=== PATIENT | male | born 1965 | race Caucasian/White ===

== ENCOUNTER 2018-02-01 17:12 | Outpatient (CLI) | payer OTHER | END 2018-02-01 17:13 | disposition home or self-care (01) | LOC: RHC-LAB 17:12 | PROVIDERS: ATTEND Emergency Medicine | DX: E11.9 Type 2 diabetes mellitus without complications (principal); I10 Essential (primary) hypertension; E66.9 Obesity, unspecified; Z12.5 Encounter for screening for malignant neoplasm of prostate | CPT/HCPCS: 36415; 80053; 80061; 83036; 84443; 85025 ==

== ENCOUNTER 2018-02-10 17:57 | Emergency (ER) ==
[2018-02-10 18:13] VITALS: BP 122/79; TEMP 98.8; BMI 44.9
[2018-02-10] MEDS ORDERED: SODIUM CHLORIDE 1,000 ML IV STA (18:36)
--- NOTE | 2018-02-10 19:55 | CT ---
EXAM: Noncontrast CT of the abdomen and pelvis HISTORY: Vomiting COMPARISON: None available. TECHNIQUE: Axial noncontrast CT of the abdomen pelvis with sagittal and coronal reformats. FINDINGS: Noncontrast technique limits evaluation of abdominal viscera. The unenhanced liver appears unremarkab le. The gallbladder has been removed. Splenic calcified granulomas are noted. The unenhanced adren als appear unremarkable. There is mild bilateral perinephric fat stranding. A right renal interpola r exophytic lesion is seen measuring 9 mm and 40 HU. There is a right renal inferior pole exophytic lesion measuring 11 mm and 27 HU. The pancreas appears unremarkable. There is no evidence of urolithi asis. The stomach is mild distended with ingested material. No abnormal small bowel dilation is seen. Multi ple right hemiabdomen surgical clips are seen, in close proximity to the colon. More central abdomina l surgical clips are also seen. No abnormal colonic dilation is seen. The appendix is not identifie d. No pericecal inflammatory changes seen. No free air or free fluid is seen. The bladder is moderately distended. Degenerative changes of the h ips and spine are seen. IMPRESSION: Mild bilateral perinephric fat stranding which could be chronic or indicative of inflammation. Two right renal lesions with the largest measuring 1.1 cm. These measure greater than simple cystic density. Follow-up ultrasound is recommended. Moderate bladder distension. Operative change of the abdomen. Noncontrast exam.
--- NOTE | 2018-02-10 20:04 | ED.PDOC ---
General ED Provider: Dr. TAMEKA CARBAJAL-ER Chief Complaint: Abnormal Labs Stated Complaint: was sent from the clinic with high potassium Time Seen by Physician: 18:00 Mode of Arrival: Wheelchair Information Source: Patient Exam Limitations: No limitations Primary [facility] Nursing and Triage Documentation Reviewed and Agree: Yes Does patient meet sepsis criteria?: No System Inflammatory Response Syndrome: Not Applicable Sepsis Protocol: For patient's 13 years and over: Temp is 96.8 and below OR 101 and greater Pulse >90 BPM Resp >20/minute Acutely Altered Mental Status Are patient's symptoms suggestive of a new infection, such as: -Pneumonia -Skin, Soft Tissue -Endocarditis -UTI -Bone, Joint Infection -Implantable Device -Acute Abdominal Infection -Wound Infection -Meningitis -Blood Stream Catheter Infection -Unknown Miscellaneous Complaint Exam - Complex/Multi-System Complaint/Exam Onset/Duration: unknown Initial Severity: Mild Current Severity: Mild Location of Pain: no pain Associated Signs and Symptoms: Denies: Decreased responsiveness, Confusion, Agitation, Dizziness, Weakness, Syncope, Headache, Short of air, Cough, Wheezing , Hemoptysis, Chest pain, Palpitations, Edema, Nausea, Vomiting, Diarrhea, Abdominal pain, Back pain, Dysuria, Hematemesis, Melena, Decreased oral intake, Fever, Diaphoresis, Immunocompromised, Anticoagulation Therapy, Recent medication changes, Indwelling medical and scientific illustrator, Prior MRSA, Prior VRE, Recent trauma, Remote trauma Recent Echo/LV Function: No Respiratory Distress: None JVD Present: No Tachypnea Present: No Stridor Present: No Abdominal Findings: Present: Normal findings Meningeal Signs Positive: No Focal Weakness: Present: None Focal Sensory Loss: Present: None Gait: Normal Gag Reflex Present: Yes Babinski Sign: Negative Right, Negative Left Skin Findings: Present: Normal findings Joint Swelling Present: No In-Dwelling Device Present: No Quality Indicator For Non-Traumatic Chest Pain/Syncope: EKG Performed Review of Systems - Review Of Systems Constitutional: Reports: No symptoms Eyes: Reports: No symptoms Ears, Nose, Mouth, Throat: Reports: No symptoms Respiratory: Reports: No symptoms Cardiac: Reports: No symptoms GI: Reports: No symptoms : Reports: No symptoms Musculoskeletal: Reports: No symptoms Skin: Reports: No symptoms Neurological: Reports: No symptoms Endocrine: Reports: No symptoms Hematologic/Lymphatic: Reports: No symptoms All Other Systems: Reviewed and Negative Past Medical History - Past Medical History Previously Healthy: No Endocrine: Reports: Unknown Cardiovascular: Reports: Unknown Respiratory: Reports: Unknown Hematological: Reports: Unknown Gastrointestinal: Reports: Unknown Genitourinary: Reports: Unknown Neuro/Psych: Reports: Unknown Musculoskeletal: Reports: Unknown Cancer: Reports: Unknown - Surgical History General Surgical History: Reports: Unknown - Family History Family History: Reports: Unknown - Social History Smoking Status: Current every day smoker Hx Substance Use: No Alcohol Screening: None Physical Exam - Physical Exam Appearance: Well-appearing, No pain distress, Well-nourished Eyes: BECKY, EOMI, Conjunctiva clear ENT: Ears normal, Nose normal, Oropharynx normal Neck: Supple Respiratory: Airway patent Cardiovascular: RRR, Pulses normal, No rub, No murmur GI/: Soft Musculoskeletal: Normal strength, ROM intact, No edema, No calf tenderness Skin: Warm, Dry, Normal color Neurological: Sensation intact, Motor intact, Reflexes intact, Cranial nerves intact, Alert, Oriented Psychiatric: Affect appropriate, Mood appropriate Interpretation - Radiology Interpretation Radiology Interpretation By: Radiologist Radiology Results: Positive Exam Interpreted: CT Scan - EKG Interpretation Time of EKG #1: 20:04 Rate: Normal Ectopy: None Davilla: NL ST Segment: Normal Interpretation: R bbb Critical Care Note - Critical Care Note Total Time (mins): 0 Course - Course Hematology/Chemistry: 02/10/18 19:10 02/10/18 19:10 Orders, Labs, Meds: Lab Review 02/10/18 02/10/18 02/10/18 18:35 19:10 19:10 WBC 11.10 H RBC 3.63 L Hgb 10.6 L Hct 33.6 L MCV 92.6 MCH 29.2 MCHC 31.5 L RDW Coeff of [place] 14.1 Plt Count 176 Immature Gran % (Auto) 1.2 Neut % (Auto) 61.7 Lymph % (Auto) 27.7 [place] % (Auto) 7.6 Eos % (Auto) 1.3 Baso % (Auto) 0.5 Immature Gran # (Auto) 0.1 Neut # (Auto) 6.9 Lymph # (Auto) 3.1 [place] # (Auto) 0.8 Eos # (Auto) 0.1 Baso # (Auto) 0.1 Puncture Site Lbrach O2 Saturation 95.0 ABG pH 7.362 ABG pCO2 40.9 ABG pO2 77.0 L ABG HCO3 23.2 ABG Total CO2 24 ABG Base Excess -2 Russell Test + FiO2 % 21.0 Sodium 140 Potassium 5.5 H Chloride 106 Carbon Dioxide 24 Anion Gap 15.5 BUN 55 H Creatinine 1.26 H Estimated GFR (MDRD) 60.00 BUN/Creatinine Ratio 43.65 Glucose 92 Calcium 9.2 Total Bilirubin 0.2 AST 29 ALT 21 Alkaline Phosphatase 56 Total Creatine Kinase CK-MB (CK-2) CK-MB (CK-2) % Troponin I Total Protein 7.8 Albumin 4.1 Globulin 3.7 Albumin/Globulin Ratio 1.11 Amylase 102 Lipase 198 Urine Color Urine Clarity Urine pH Ur Specific [place] Urine Protein Urine Glucose (UA) Urine Ketones Urine Blood Urine Nitrite Urine Bilirubin Urine Urobilinogen Ur Leukocyte Esterase 02/10/18 02/10/18 19:10 20:03 WBC RBC Hgb Hct MCV MCH MCHC RDW Coeff of [place] Plt Count Immature Gran % (Auto) Neut % (Auto) Lymph % (Auto) [place] % (Auto) Eos % (Auto) Baso % (Auto) Immature Gran # (Auto) Neut # (Auto) Lymph # (Auto) [place] # (Auto) Eos # (Auto) Baso # (Auto) Puncture Site O2 Saturation ABG pH ABG pCO2 ABG pO2 ABG HCO3 ABG Total CO2 ABG Base Excess Russell Test FiO2 % Sodium Potassium Chloride Carbon Dioxide Anion Gap BUN Creatinine Estimated GFR (MDRD) BUN/Creatinine Ratio Glucose Calcium Total Bilirubin AST ALT Alkaline Phosphatase Total Creatine Kinase 233 H CK-MB (CK-2) 4.4 H CK-MB (CK-2) % 1.39062 Troponin I < 0.012 Total Protein Albumin Globulin Albumin/Globulin Ratio Amylase Lipase Urine Color Yellow Urine Clarity Clear Urine pH 5.5 Ur Specific [place] 1.015 Urine Protein Negative Urine Glucose (UA) Negative Urine Ketones Negative Urine Blood Negative Urine Nitrite Negative Urine Bilirubin Negative Urine Urobilinogen 0.2 Ur Leukocyte Esterase Negative Orders Category Date Time Status ABG DRAW REQUEST Stat CARDIO 02/10/18 18:36 Completed EKG-(ED ONLY) Stat CARDIO 02/10/18 18:36 Completed ED IV/MEDIPORT/POWERPORT .ONCE EMERGENCY 02/10/18 18:36 Active ABG Stat LAB 02/10/18 18:35 Completed AMYLASE Stat LAB 02/10/18 19:10 Completed CBC W/ AUTO DIFF Stat LAB 02/10/18 19:10 Completed COMPREHENSIVE METABOLIC PANEL Stat LAB 02/10/18 19:10 Completed CREATINE KINASE Stat LAB 02/10/18 19:10 Completed LIPASE Stat LAB 02/10/18 19:10 Completed TROPONIN I Stat LAB 02/10/18 19:10 Completed UA [URINALYSIS C & S IF INDICATED] Stat LAB 02/10/18 20:03 Completed 0.9 % Sodium Chloride [Saline Flush] MEDS 02/10/18 18:36 Ordered 1 syr IVF PRN PRN Sodium Chloride 0.9% [Sodium Chloride] 1,000 ml MEDS 02/10/18 18:[address] ABDOMEN/PELVIS WO CONTRAST Stat RADS 02/10/18 18:37 Completed Medications Generic Name Dose Route Start Last Admin Trade Name Freq PRN Reason Stop Dose Admin Sodium Chloride 1 syr 02/10/18 18:36 Saline Flush IVF PRN PRN To flush IV Discontinued Medications Generic Name Dose Route Start Last Admin Trade Name Freq PRN Reason Stop Dose Admin Sodium Chloride 1,000 mls @ 1,000 mls/hr 02/10/18 18:36 02/10/18 19:16 Sodium Chloride IV 02/10/18 19:35 1,000 mls/hr BOLUS STA Administration Vital Signs: Temp Pulse Resp BP Pulse Ox 02/10/18 17:58 98.8 F 96 H 20 122/79 94 L Departure - Departure Time of Disposition: 20:20 Disposition: HOME SELF-CARE Discharge Problem: Hyperkalemia, Abnormal CT scan, kidney Anemia Qualifiers: Anemia type: unspecified type Qualified Code(s): D64.9 - Anemia, unspecified Instructions: Hyperkalemia (ED) Condition: Good Pt referred to PMD for follow-up: Yes IPMP verified?: No Additional Instructions: stop the aldactone---keep f/u with spenser next week--talk to spenser about rechecking the potassium, evaluation of your anemia and also ordering u/s of the kidneys to f/u on the masses on the right kidney Allergies/Adverse Reactions: Allergies meperidine HCl [From Demerol] Allergy (Unverified 02/01/18 14:47) Internal Rash Home Medications: Ambulatory Orders Allopurinol 100 mg PO DAILY 02/02/18 Atorvastatin Calcium [Lipitor] 20 mg PO DAILY 02/02/18 Divalproex Sodium [Depakote Er] 500 mg PO BID 02/02/18 Enalapril Maleate [Vasotec] 20 mg PO BID 02/02/18 Furosemide 40 mg PO BID 02/02/18 Gabapentin 300 mg PO TID 02/02/18 Glipizide [Glucotrol] 10 mg PO DAILY 02/02/18 Hydrocodone/Acetaminophen [[place] 10-325 Tablet] 1 each PO TID 02/02/18 Insulin Glargine,Hum.rec.anlog [Lantus] 25 SQ vial 02/02/18 Liraglutide [Victoza 2-Prasanna] 0.6 mg SQ DAILY 02/02/18 Metformin HCl 1,000 mg PO BID 02/02/18 Metoprolol Tartrate [Lopressor] 100 mg PO BID 02/02/18 Pantoprazole Sodium [Protonix] 40 mg PO DAILY 02/02/18 Pen Needle, Diabetic [Trueplus Pen Needle] 1 each MC 02/02/18 Spironolact/Hydrochlorothiazid [Aldactazide 25-25 Tablet] 1 each PO DAILY Syrge-Ndl,Ins 0.3 ml Half [place] [Ulticare Insulin Syringe] 1 each MC DIRECTED 02/02/18 Tamsulosin HCl [Flomax] 0.4 mg PO DAILY 02/02/18 Tizanidine HCl 4 mg PO TID 02/02/18 Disposition Discussed With: Patient
== END 2018-02-10 20:28 | disposition home or self-care (01) ==
LOC: ED 17:57
DX: E87.5 Hyperkalemia (principal); D64.9 Anemia, unspecified; R93.429 Abnormal radiologic findings on diagnostic imaging of unspecified kidney; Z79.899 Other long term (current) drug therapy; F17.210 Nicotine dependence, cigarettes, uncomplicated
CPT/HCPCS: 36415; 80053; 81001; 82150; 82550; 82553; 82803; 83690; 84484; 85025; 93005; 93010; 96360; 96361; 99283

== ENCOUNTER 2018-02-21 09:43 | Outpatient (CLI) ==
--- NOTE | 2018-02-21 11:04 | US ---
EXAM: Renal ultrasound. History: Right renal masses, follow-up Comparison: CT abdomen pelvis 02/10/2018 Technique: Multiple sonographic images through the kidneys were obtained. Color duplex Doppler was used to interrogate vascular flow. Findings: The right kidney measures 13.2 cm in long length demonstrating normal cortical echogenicity without e vidence for hydronephrosis or shadowing calculus. 1.6 cm exophytic lesion of the right kidney within the midpole. The left kidney measures 11.4 cm in long length demonstrating normal cortical echogenicity without ev idence for hydronephrosis, mass or shadowing calculus. Bladder was not well distended. Impression: 1. Indeterminate 1.6 cm exophytic lesion of the right kidney. Recommend further evaluation with CT o r MRI renal mass protocol. 2. No hydronephrosis
== END 2018-02-21 09:44 | disposition home or self-care (01) ==
LOC: RAD 09:43
PROVIDERS: ATTEND Nurse Practitioner Family
DX: N28.89 Other specified disorders of kidney and ureter (principal)

== ENCOUNTER 2018-03-06 13:56 | Outpatient (CLI) | payer OTHER | END 2018-03-06 13:57 | disposition home or self-care (01) | LOC: CAR 13:56 | PROVIDERS: ATTEND Psychiatry & Neurology Sleep Medicine | DX: G47.33 Obstructive sleep apnea (adult) (pediatric) (principal); R06.81 Apnea, not elsewhere classified | CPT/HCPCS: 95810 ==

== ENCOUNTER 2018-04-18 14:03 | Outpatient (CLI) | payer OTHER | END 2018-04-18 14:04 | disposition home or self-care (01) | LOC: CAR 14:03 | PROVIDERS: ATTEND Psychiatry & Neurology Sleep Medicine | DX: G47.33 Obstructive sleep apnea (adult) (pediatric) (principal) | CPT/HCPCS: 95811 ==

== ENCOUNTER 2018-07-03 14:23 | Outpatient (CLI) ==
--- NOTE | 2018-07-03 15:10 | US ---
EXAM: Ultrasound venous Doppler right lower extermity HISTORY: Pain right leg COMPARISON: None TECHNIQUE: Venous duplex ultrasound of the right lower extremity was performed using color, dee-sca le, and Doppler flow imaging. FINDINGS: There is normal color flow and compression of the right common femoral, greater saphenous, profunda femoral, femoral, popliteal, peroneal, posterior tibial, and anterior tibial veins without evidence of intraluminal thrombus. IMPRESSION: No right lower extremity deep venous thrombosis.
--- NOTE | 2018-07-03 16:30 | DI ---
Exam: Two views of the right hip. Comparison: CT abdomen pelvis performed 02/10/2018. Reason for exam: Pain in right hip. FINDINGS: There is a minimally displaced fracture of the right femoral neck. The femoral head artic ulates with the acetabulum. The partially imaged inferior pubic ramus appears intact. Impression: A minimally displaced fracture of the right femoral neck. Orthopedic consultation is recommended. Report faxed at 1621 hours on 07/03/2018. Findings were discussed directly with the ordering care provider at 1626 hours on 07/03/2018
== END 2018-07-03 14:24 | disposition home or self-care (01) ==
LOC: RAD 14:23
PROVIDERS: ATTEND Nurse Practitioner Family
DX: M79.604 Pain in right leg (principal); M79.89 Other specified soft tissue disorders; M25.551 Pain in right hip; W19.XXXA Unspecified fall, initial encounter

== ENCOUNTER 2018-07-03 18:44 | Emergency (ER) | payer OTHER ==
[2018-07-03 18:45] VITALS: BMI 44.9
[2018-07-03 19:02] VITALS: BP 134/74; TEMP 99.2
--- NOTE | 2018-07-03 19:45 | ED.PDOC ---
General ED Provider: Dr. ASHELY LANE Chief Complaint: Hip Pain/Injury Stated Complaint: Patient is wheelchair bound due to failed right knee repalcement. 3 weeks ago he fell out of his wheelchair landing on his right hip. Since the has been having difficulty with tranfers. went to the clinic today and had an x ray that showed minimally displced right hip fracture. Pain is worse with tranfers better while laying down. Time Seen by Physician: 19:40 Mode of Arrival: Wheelchair Information Source: Patient Exam Limitations: No limitations Primary Care Provider: DIOGENES SENA Nursing and Triage Documentation Reviewed and Agree: Yes Does patient meet sepsis criteria?: No System Inflammatory Response Syndrome: Not Applicable Sepsis Protocol: For patient's 13 years and over: Temp is 96.8 and below OR 101 and greater Pulse >90 BPM Resp >20/minute Acutely Altered Mental Status Are patient's symptoms suggestive of a new infection, such as: -Pneumonia -Skin, Soft Tissue -Endocarditis -UTI -Bone, Joint Infection -Implantable Device -Acute Abdominal Infection -Wound Infection -Meningitis -Blood Stream Catheter Infection -Unknown Musculoskeletal Complaint Exam - Hip/Pelvis Complaint/Exam Location of Pain: Reports: Right Mechanism of Injury: Reports: Trauma (remotely ) Onset/Duration: 3 weeks ago Symptoms Are: Still present Initial Severity: Moderate Current Severity: Mild Location: Reports: Discrete (rigth hip ) Character: Reports: Aching, Throbbing Aggravating: Reports: Movement, Weight bearing (Transfers ) Alleviating: Reports: None Associated Signs and Symptoms: Reports: Knee pain (unstable right knee ). Denies: Swelling, Redness, Bruising, Fever, Weakness, Dizziness, Syncope, Abdominal pain Related History: Denies: Similar episode, Occupational injury Able to Bear Weight: Yes (but with pain ) Septic Arthritis Risk Factors: Reports: None Related Surgical History: Reports: Joint Replacement Tenderness: Present: Right NV Bundle Intact Distal to Injury: No Differential Diagnoses: Fracture, Sprain, Strain Review of Systems - Review Of Systems Constitutional: Reports: No symptoms Eyes: Reports: No symptoms Ears, Nose, Mouth, Throat: Reports: No symptoms Respiratory: Reports: No symptoms Cardiac: Reports: No symptoms GI: Reports: No symptoms : Reports: No symptoms Musculoskeletal: Reports: Joint pain Skin: Reports: No symptoms Neurological: Reports: No symptoms Endocrine: Reports: No symptoms Hematologic/Lymphatic: Reports: No symptoms All Other Systems: Reviewed and Negative Past Medical History - Past Medical History Previously Healthy: No Endocrine: Reports: DM 2, Dyslipidemia Cardiovascular: Reports: Hypertension Respiratory: Reports: None Hematological: Reports: None Gastrointestinal: Reports: GERD Genitourinary: Reports: None Neuro/Psych: Reports: None Musculoskeletal: Reports: Back Pain, Joint Pain (knee pain ), Gout Cancer: Reports: None Other Pertinent Past Medical History: Neuropathy, RLS, fluid retention. - Surgical History General Surgical History: Reports: Orthopedic (Bilateral knee surgery ), Other ( rt ankle surg, colon resection) - Family History Family History: Reports: Unknown - Social History Smoking Status: Former smoker Hx Substance Use: No Alcohol Screening: None Physical Exam - Physical Exam Appearance: Ill-appearing, Obese Pain Distress: Mild Neck: Supple Respiratory: Airway patent, Breath sounds clear, Breath sounds equal, Respirations nonlabored Cardiovascular: RRR, Pulses normal, No rub, No murmur GI/: Soft, Nontender, No masses, Bowel sounds normal, No Organomegaly Musculoskeletal: Limited ROM (Right hip joint) Skin: Warm, Dry Neurological: Alert, Oriented Psychiatric: Affect appropriate, Mood appropriate Interpretation - Radiology Interpretation Radiology Interpretation By: Radiologist Radiology Results: Positive Exam Interpreted: Other (Minimally Displaced fracture of the right femoral neck. ) Physician Notification - Case Discussed Physician Notified: Dr Valentine Time of Notification: 20:08 Critical Care Note - Critical Care Note Total Time (mins): 0 Course - Course Hematology/Chemistry: 07/03/18 20:25 Orders, Labs, Meds: Lab Review 07/03/18 20:25 WBC 8.30 RBC 3.63 L Hgb 10.1 L Hct 33.1 L MCV 91.2 MCH 27.8 MCHC 30.5 L RDW Coeff of [place] 14.6 Plt Count 115 L Immature Gran % (Auto) 0.8 Neut % (Auto) 69.1 Lymph % (Auto) 22.9 [place] % (Auto) 5.9 Eos % (Auto) 1.1 Baso % (Auto) 0.2 Immature Gran # (Auto) 0.1 Neut # (Auto) 5.7 Lymph # (Auto) 1.9 [place] # (Auto) 0.5 Eos # (Auto) 0.1 Baso # (Auto) 0.0 Orders Category Date Time Status CBC W/ AUTO DIFF Stat LAB 07/03/18 20:25 Completed Vital Signs: Temp Pulse Resp BP Pulse Ox 07/03/18 18:45 99.2 F 97 H 20 134/74 92 L Departure - Departure Time of Disposition: 21:00 Disposition: TSF SHORT-TRM HOSP Discharge Problem: Hip fracture Qualifiers: Encounter type: initial encounter Fracture type: closed Laterality: right Qualified Code(s): S72.001A - Fracture of unspecified part of neck of right femur, initial encounter for closed fracture Condition: Stable Pt referred to PMD for follow-up: Yes IPMP verified?: No Allergies/Adverse Reactions: Allergies meperidine HCl [From Demerol] Allergy (Unverified 02/01/18 14:47) Internal Rash Home Medications: Ambulatory Orders Atorvastatin Calcium [Lipitor] 20 mg PO DAILY 02/02/18 Divalproex Sodium [Depakote Er] 500 mg PO BID 02/02/18 Enalapril Maleate [Vasotec] 20 mg PO BID 02/02/18 Glipizide [Glucotrol] 10 mg PO DAILY 02/02/18 Hydrocodone/Acetaminophen [[place] 10-325 Tablet] 1 each PO TID 02/02/18 Metoprolol Tartrate [Lopressor] 100 mg PO BID 02/02/18 Pantoprazole Sodium [Protonix] 40 mg PO DAILY 02/02/18 Pen Needle, Diabetic [Trueplus Pen Needle] 1 each MC 02/02/18 Syrge-Ndl,Ins 0.3 ml Half [place] [Ulticare Insulin Syringe] 1 each MC DIRECTED 02/02/18 Tamsulosin HCl [Flomax] 0.4 mg PO DAILY 02/02/18 Tizanidine HCl 4 mg PO TID 02/02/18
== END 2018-07-03 21:15 | disposition short-term general hospital (02) ==
LOC: ED 18:44
DX: S72.001A Fracture of unspecified part of neck of right femur, initial encounter for closed fracture (principal); W05.0XXA Fall from non-moving wheelchair, initial encounter; M25.561 Pain in right knee; E11.9 Type 2 diabetes mellitus without complications; I10 Essential (primary) hypertension; E78.5 Hyperlipidemia, unspecified; Z79.899 Other long term (current) drug therapy; M79.89 Other specified soft tissue disorders; M79.604 Pain in right leg; M25.551 Pain in right hip; W19.XXXA Unspecified fall, initial encounter
CPT/HCPCS: 36415; 85025; 99284

== ENCOUNTER 2018-08-31 10:00 | Outpatient (RCR) ==
--- NOTE | 2018-08-21 09:36 | RS.OPPTEV2 ---
Date of Note: 08/18/18 Visit #: 1 Number of visits approved by Insurance: NA Date of Evaluation: 08/18/18 Payer Source: MEDICARE Treatment Diagnosis: Right hip pain, declined mobility History of Condition/Mechanism of Injury:: Mr. Washburn reports right hip pain since he fell in mid June of this year. States he had no right hip pain before. He was initially told that he had a fracture of the right femoral neck , but when he was transferred to a [facility] and had further tests, he was told there was no fracture. 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 Level of Function: Mr. Washburn was performing transfers all transfers independently. Able to adjust his position in his WC and able to self propel with his feet. Functional Limitations: ADL's, Community Access/Integration (transfers) Current Subjective/complaints:: Mr. Washburn reports right hip pain and more difficulty with propelling wheelchair with feet and difficulty with transfers. States pain is directly over the right hip joint. Denies shooting pain into the right LE. Reports neuropathy in LE's. States he received a new wheelchair soon after his injury and this chair's seat is higher, which makes it more difficulty for him to use his feet to propel himself. He had a power chair years ago, but states he lives in a mobile home and it was difficult to maneuver. His is unable to help him, because she has bilateral LE amputations and uses a wheelchair for mobility. They both have hospital beds. Mr. Washburn states he sleeps on his right side. He does wake up at night sometimes due to right hip pain, and usually has pain when he wakes up in the morning. Treatment Side (optional): Right (hip) Medical History Medical History: Hypertension, Diabetes (type 2), Arthritis Medical History Comments:: Neuropathy, Restless Leg Syndrome Surgical History Comments:: Bilateral TKA, right ankle surgery, colon resection Hx Home Medications: Will bring list of meds Patient's Goals: His goal is to get relief of right hip pain and gain more ease with transfers. Pain Assessment - Pain Description Pain Location: right hip Current Pain Intensity: 6/10 Worst Pain Intensity: 8/10 Functional Outcome Measure LE Functional Scale: 19 (19/80=76.25% impaired) - G Codes & Severity Modifier G Codes & Modifier: NA Source of G Code score: NA Observation - Observation Inspection: Patient presenst to department via his wheelchair. Gait - Gait Pattern Gait Comments: Pt is nonambulatory. Able to propel himself in WC with his feet in the department. Transfers with SBA to CGA of one, to and from WC to low treatment table. When attempting to stand from low table, he is not able to extend hips or knees and holds himself just off the bed. While in the wheelchair, he is able to readjust his position independently. General Range of Motion: Bilateral hip flexion to 85-90 degrees, limited by soft tissue approximation. Hip extension limited to approximately 10 degrees from neutral bilaterally. Hip Abduction 25 degrees with reports of pain. Slight discomfort with hip IR and ER. Bilateral knee Extension -20 degrees, Flexion 95 degrees. Ankle AROM: DF to neutral bilaterally, PF 40 degrees. Muscle Strength: Right hip strength generally 4/5 throughout. Denies pain with MMT. right knee 4-/5 Quads and HS. Ankle 4/5. Left hip strength 4+/5. Left Quads and HS 4 to 4+/5, ankle 4/5. Trunk strength 4/5. Special Tests: Long axis distraction to the right hip does not change symptoms. Compression to the hip does increase hip pain. Palpation Comments:: Mr. Washburn reports tenderness with palpation to the right greater trochanter. Denies tenderness along the IT band or thigh. Sensation - Sensation Comments: Reports neuropathy, but able to detect light touch throughout bilateral LE's today. Reports currently tingling in his fingers. Balance - Sitting Balance Static Sitting Balance: Good Dynamic Sitting Balance: Good - Standing Balance Static Standing Balance: Poor Dynamic Standing Balance: Poor Additional Comments: Additional Comments: Mr. Washburn is able to independently propel the wheelchair with his feet in the department. He uses his hands on the wheels to help propel. Push rims have been removed to decrease the width of the wheelchair. Interventions - Exercise/Activities/Manual Therapy Exercises/Activities: NA Manual Therapy: NA - Charges Timed Code Treatment Minutes: 0 Total Treatment Time: 55 mins Procedures billed for this date of service:: EVAL High EVALUATION COMPLEXITY LEVEL EVALUATION COMPLEXITY LEVEL: HISTORY: High (Nonambulatory, Diabetes, bilateral TKA with documentation of failed right TKA, Obesity,Neuropathy), EXAM OF BODY SYSTEMS: High (transfer/mobility, ROM, MS, sensation, pain), CLINICAL PRESENTATION: Medium (right hip pain, different WC recently), CLINICAL DECISION MAKING: Medium Assessment Assessment: Mr. Washburn presents to therapy with a diagnosis of declined functional mobility. He reports increased difficulty with transfers to/from his wheelchair and right hip pain since he fell in mid June 2018. He demonstrates extreme tightness of the hip and knee joints from spending so much time in a wheelchair. He has tenderness over the right greater trochanter, and pain with ROM. He demonstrates potential to benefit from modalities and exercises to reduce his right hip pain and improve his ability with transfers. Patient Education: Education of diagnosis, Body/Joint mechanics, Home Safety, Education of Plan of Care Rehab Potential: Good Short Term Goals Goal #1: Tenderness at right hip decreased to minimal. Goal to be met by: 09/01/18 Goal #2: Patient able to perform right hip abduction & extension w/min. discomfort. Goal to be met by: 09/01/18 Half-Way Goals Goal #1: Pt knows HEP and to continue ex's to maintain functional level at D/C. Goal to be met by: 09/27/18 Goal #2: Pt will perform all transfers to/from WC independently with good safety. Goal to be met by: 09/27/18 Goal #3: Pt to sleep without interruption from right hip pain. Goal to be met by: 09/27/18 Plan - Treatment to be Provided Procedures: Therapeutic Exercises, Therapeutic Activity, Manual Therapy, Patient Education Modalities: Ultrasound/Phonophoresis, Cryotherapy, Hot Packs - Treatment Plan Frequency: 2-3 X week Duration: 4 weeks Dates of Neurology Physician Goals: 09/27/18 Expiration date of current Insurance Approval:: NA - Treatment Code (1) History of fall within past 90 days Code(s): Z91.81 - HISTORY OF FALLING Comments: Z91.81 (2) Hip pain Code(s): M25.559 - PAIN IN UNSPECIFIED HIP Qualifiers: Laterality: right Qualified Code(s): M25.551 - Pain in right hip (3) Dependent on wheelchair Code(s): Z99.3 - DEPENDENCE ON WHEELCHAIR Comments: Z99.3
--- NOTE | 2018-08-21 15:27 | RS.OPPTDN ---
Subjective Date of Note: 08/21/18 Visit #: 2 Number of visits approved by Insurance: na Date of Evaluation: 08/18/18 Payer Source: MEDICARE Treatment Diagnosis: Right hip pain, declined mobility Current Subjective/complaints:: Patient reports the pain is mostly in the R hip /buttocks ,not radiating into the LE. Pain Assessment - Pain Description Pain Location: R hip /buttocks Pain Description: Dull, Aching Current Pain Intensity: 7 - Treatment Modality: Ultrasound Parameters/Method Applied: 10 mins. @ 1.5 w/cm2,continuous mode , to R hip area. Patient Position: Left Sidelying - Heat/Cryotherapy Treatment: Hot Pack (20 mins.prior to US) Interventions - Exercise/Activities/Manual Therapy Exercises/Activities: 15mins. hip abduction,hip IR/ER,ITband stretche,all done in L sidelying. Total minutes of Exercise: 15 Manual Therapy: NA Total minutes of Manual Therapy: 0 - Charges Timed Code Treatment Minutes: 15 Total Treatment Time: 45 Procedures billed for this date of service:: hp,US,ex Assessment: Patient reports minimum relief after treatment today.He fatigues easily with activity,due to being deconditioned ,uses W/C for primary transportation.He has difficulty resting in supine ,so recommended him to do exercises as tolerated ,in L sidelying with assistance. Patient Education: Education of diagnosis, Body/Joint mechanics, Home Exercise Program, Home Safety, Activity Modification, Education of Plan of Care Short Term Goals Goal #1: Tenderness at right hip decreased to minimal. Goal to be met by: 09/01/18 Goal #2: Patient able to perform right hip abduction & extension w/min. discomfort. Goal to be met by: 09/01/18 [employer] I Farmworker Goals Goal #1: Pt knows HEP and to continue ex's to maintain functional level at D/C. Goal to be met by: 09/27/18 Progress towards goal: Progressing Goal #2: Pt will perform all transfers to/from independently with good safety. Goal to be met by: 09/27/18 Goal #3: Pt to sleep without interruption from right hip pain. Goal to be met by: 09/27/18 Plan Dates of D[employer] I Farmworker Goals: 09/27/18 Expiration date of current Insurance Approval:: na PLAN: Cont. PT to reduce /elminate R hip pain return to PLOF,doing safe transfers.
--- NOTE | 2018-08-24 16:20 | RS.OPPTDN ---
Subjective Date of Note: 08/24/18 Visit #: 3 Number of visits approved by Insurance: na Date of Evaluation: 08/18/18 Payer Source: MEDICARE Treatment Diagnosis: Right hip pain, declined mobility Current Subjective/complaints:: Reports the R hip pain is about the same as last viisit. Pain Assessment - Pain Description Pain Location: R hip Pain Description: Dull, Aching, Chronic Current Pain Intensity: 12/13 - Treatment Modality: Ultrasound Parameters/Method Applied: 10 mins.@ 1.5 w/cm2,continuous mode to R hip . Patient Position: Left Sidelying (20 mins. prior to US Nd exercises) - Heat/Cryotherapy Treatment: Hot Pack (20 mins. prior to US) Interventions - Exercise/Activities/Manual Therapy Exercises/Activities: 20 mins. AAROM in L sidelying for R hip abduction,hip IR/ ER,ITband stretches,all done in L sidelying. Total minutes of Exercise: 20 Manual Therapy: NA Total minutes of Manual Therapy: 0 HOME EXERCISE PROGRAM: L sidelying hip abd/adduction ,IT band stretch,with assistance of caregiver to protect the low back. - Charges Timed Code Treatment Minutes: 30 Total Treatment Time: 50 Procedures billed for this date of service:: hp,US,ex Assessment: Patient needs moderate asist with exercises due to weakness.He continues to have R hip and R groin pain when attempting active motion on his own ,but lessens with assistance given.He reports he cannot be supine very long to do the exercises ,as this hurts his back. Patient Education: Education of diagnosis, Body/Joint mechanics, Home Exercise Program, Home Safety, Activity Modification, Education of Plan of Care Patient demonstrates compliance with HEP?: Yes Short Term Goals Goal #1: Tenderness at right hip decreased to minimal. Goal to be met by: 09/01/18 (12/13 last visit and today) Progress towards Goal:: No Change Goal #2: Patient able to perform right hip abduction & extension w/min. discomfort. Goal to be met by: 09/01/18 Progress towards Goal:: Progressing (pain lessens if he is assisted with the motion) [facility] Goals Goal #1: Pt knows HEP and to continue ex's to maintain functional level at D/C. Goal to be met by: 09/27/18 Progress towards goal: Progressing Goal #2: Pt will perform all transfers to/from independently with good safety. Goal to be met by: 09/27/18 Progress towards goal: Progressing Goal #3: Pt to sleep without interruption from right hip pain. Goal to be met by: 09/27/18 Plan Dates of Countersinker Goals: 09/27/18 Expiration date of current Insurance Approval:: na PLAN: Cont. PT to reduce R hip pain ,strengthen the R hip /LE for safer transfers to /from W/C.
--- NOTE | 2018-08-29 11:03 | RS.OPPTDN ---
Subjective Date of Note: 08/29/18 Visit #: 4 Number of visits approved by Insurance: na Date of Evaluation: 08/18/18 Payer Source: MEDICARE Treatment Diagnosis: Right hip pain, declined mobility Current Subjective/complaints:: Patient reports the relief sems to be temporary ,usually only the day of treatment .We discussed the POC,continue this week ,re- assess after 2-3 more sessions tentatively. Pain Assessment - Pain Description Pain Location: R hip Pain Description: Dull, Aching Pain Description: "moderate" Current Pain Intensity: not rated - Treatment Modality: Ultrasound Parameters/Method Applied: 10 mins. @ 1.5 w/cm2 , continuous mode to R hip area. - Heat/Cryotherapy Treatment: Hot Pack (20 mins. prior to US and exercises) Interventions - Exercise/Activities/Manual Therapy Exercises/Activities: 20 mins. PROM to AAROM in L sidelying for R hip abduction ,hip IR/ER,ITband stretches,all done in L sidelying. Total minutes of Exercise: 20 Manual Therapy: NA Total minutes of Manual Therapy: 0 HOME EXERCISE PROGRAM: L sidelying hip abd/adduction ,IT band stretch,with assistance of caregiver to protect the low back. - Charges Timed Code Treatment Minutes: 30 Total Treatment Time: 50 Procedures billed for this date of service:: hp,US,ex 1 Assessment: Patient tolerates the passive motion well,has increased with AA to AROM of the R hip today.He understands to do exercises in becky free ROM. Patient Education: Home Exercise Program, Education of Plan of Care Patient demonstrates compliance with HEP?: Yes Short Term Goals Goal #1: Tenderness at right hip decreased to minimal. Goal to be met by: 09/01/18 (12/13 last visit and today) Progress towards Goal:: Progressing Goal #2: Patient able to perform right hip abduction & extension w/min. discomfort. Goal to be met by: 09/01/18 Progress towards Goal:: Progressing (pain lessens if he is assisted with the motion) Group Home Goals Goal #1: Pt knows HEP and to continue ex's to maintain functional level at D/C. Goal to be met by: 09/27/18 Progress towards goal: Progressing Goal #2: Pt will perform all transfers to/from independently with good safety. Goal to be met by: 09/27/18 Progress towards goal: Progressing Goal #3: Pt to sleep without interruption from right hip pain. Goal to be met by: 09/27/18 Progress towards goal: No Change Plan Dates of Hide Dyer Goals: 09/27/18 Expiration date of current Insurance Approval:: na PLAN: Cont. skilled PT ,will asses progress at end of this week.
--- NOTE | 2018-08-31 11:55 | RS.OPPTDN ---
Subjective Date of Note: 08/31/18 Visit #: 5 Number of visits approved by Insurance: na Date of Evaluation: 08/18/18 Payer Source: MEDICARE Treatment Diagnosis: Right hip pain, declined mobility Current Subjective/complaints:: Patient reports the relief lasted a little longer after last PT session ,but it still is dependent upon the amount of activity for each day. Pain Assessment - Pain Description Pain Location: R hip Pain Description: Dull, Aching Pain Description: moderate Current Pain Intensity: 5/10 Worst Pain Intensity: na Other Comments regarding Pain:: elevates on a busier day that requires several transfers from the w/c. - Treatment Modality: Ultrasound Parameters/Method Applied: 10 mins,continuous mode @ 1.5 w/cm2 to R hip area. - Heat/Cryotherapy Treatment: Hot Pack (20 mins. to R hip ,patient in L sidelying , prior to US and ex.) Interventions - Exercise/Activities/Manual Therapy Exercises/Activities: 20 mins. PROM to AAROM in L sidelying for R hip abduction ,hip IR/ER,ITband stretches,all done in L sidelying. Total minutes of Exercise: 20 Manual Therapy: NA Total minutes of Manual Therapy: 0 HOME EXERCISE PROGRAM: L sidelying hip abd/adduction ,IT band stretch,with assistance of caregiver to protect the low back. - Charges Timed Code Treatment Minutes: 20 Total Treatment Time: 50 Procedures billed for this date of service:: hp,US,ex Assessment: Patient is less tender to palpate the R hip /trochanter area.the relief durationis improving .He reports he is now sleeping better ,the R hip pain is not waking him.He is attentive and motivated to imptove ,is cautious and careful when transferring from w/c. Patient Education: Body/Joint mechanics, Home Exercise Program, Education of Plan of Care Patient demonstrates compliance with HEP?: Yes Short Term Goals Goal #1: Tenderness at right hip decreased to minimal. Goal to be met by: 09/01/18 Progress towards Goal:: Progressing Goal #2: Patient able to perform right hip abduction & extension w/min. discomfort. Goal to be met by: 09/01/18 Progress towards Goal:: Progressing (pain lessens if he is assisted with the motion) Furnace Checker Goals Goal #1: Pt knows HEP and to continue ex's to maintain functional level at D/C. Goal to be met by: 09/27/18 Progress towards goal: Progressing Goal #2: Pt will perform all transfers to/from independently with good safety. Goal to be met by: 09/27/18 Progress towards goal: Progressing Goal #3: Pt to sleep without interruption from right hip pain. Goal to be met by: 09/27/18 Progress towards goal: Met Plan Dates of Furnace Checker Goals: 09/27/18 Expiration date of current Insurance Approval:: na PLAN: Cont. skilled PT to eliminate R hip pain,educate patient regarding pressure relief ,HEP for strengthening.
== END 2018-09-03 23:59 ==
PROVIDERS: ATTEND Nurse Practitioner Family
DX: R26.89 Other abnormalities of gait and mobility (principal); Z91.81 History of falling; M25.551 Pain in right hip; Z99.3 Dependence on wheelchair

== ENCOUNTER 2018-09-08 10:00 | Outpatient (RCR) ==
--- NOTE | 2018-09-06 11:24 | RS.OPPTDN ---
Subjective Date of Note: 09/06/18 Visit #: 6 Number of visits approved by Insurance: na Date of Evaluation: 08/18/18 Payer Source: MEDICARE Treatment Diagnosis: Right hip pain, declined mobility Current Subjective/complaints:: Patient reports the relief continues to be temporary,but caregiver reports he is not taking the pain pills as often.We discussed the D/C plan for this week. Pain Assessment - Pain Description Pain Location: R hip /R groin Pain Description: Dull, Aching, Chronic Current Pain Intensity: 6/10 - Treatment Modality: Ultrasound Parameters/Method Applied: 10 mins. ,cont. mode @ 1.5 w/cm2 toR hip Patient Position: Left Sidelying - Heat/Cryotherapy Treatment: Hot Pack (20 mins. prior to US and ex) Interventions - Exercise/Activities/Manual Therapy Exercises/Activities: 20 mins. PROM to AAROM in L sidelying for R hip abduction ,hip IR/ER,ITband stretches,all done in L sidelying.Copies given for sidelying "clam shell" isometric hip abduction .Instructed in w/c push-ups for pressure relief. Total minutes of Exercise: 20 Manual Therapy: NA Total minutes of Manual Therapy: 0 HOME EXERCISE PROGRAM: L sidelying hip abd/adduction ,IT band stretch,with assistance of caregiver to protect the low back. - Charges Timed Code Treatment Minutes: 25 Total Treatment Time: 45 Procedures billed for this date of service:: hp,US,ex 1 Assessment: Patient reports doing the exercises as tolerated,reports the relief is lasting the day of treatment only.We discussed the D/C plan after next session .We will review exercises ,all safety factors for transfers ,discuss activity modification /energy conservation. Patient Education: Education of Plan of Care Patient demonstrates compliance with HEP?: Yes Short Term Goals Goal #1: Tenderness at right hip decreased to minimal. Goal to be met by: 09/01/18 Progress towards Goal:: Met Goal #2: Patient able to perform right hip abduction & extension w/min. discomfort. Goal to be met by: 09/01/18 Progress towards Goal:: Partially Met (able to do this exercise without assist now,but pain varies) Snf Goals Goal #1: Pt knows HEP and to continue ex's to maintain functional level at D/C. Goal to be met by: 09/27/18 Progress towards goal: Progressing Goal #2: Pt will perform all transfers to/from independently with good safety. Goal to be met by: 09/27/18 Progress towards goal: Progressing (increased difficulty yesterday,but reports he could not use the Bi-Pap the night before,better today) Goal #3: Pt to sleep without interruption from right hip pain. Goal to be met by: 09/27/18 Progress towards goal: Met Plan Dates of Supervisor Machining Goals: 09/27/18 Expiration date of current Insurance Approval:: na PLAN: Cont. skilled PT ,review all aspects for safety and HEP,initiate D/C plan.
--- NOTE | 2018-09-08 11:13 | RS.OPPTDN ---
Subjective Date of Note: 09/08/18 Visit #: 7 Number of visits approved by Insurance: na Date of Evaluation: 08/18/18 Payer Source: MEDICARE Treatment Diagnosis: Right hip pain, declined mobility Current Subjective/complaints:: Patient reports the pain is less intense on the day of treatment ,but is temporary.He does feel he is transferring better,and sleeping better.He is doing his HEP.He agrees with D/C plan today. Pain Assessment - Pain Description Pain Location: R hip Pain Description: Dull, Aching, Chronic Other Comments regarding Pain:: min @ rest,moderate with transfers - Treatment Modality: Ultrasound Parameters/Method Applied: 10 mins. @ 1.5 w/cm2 .to R hip Patient Position: Left Sidelying - Heat/Cryotherapy Treatment: Hot Pack (20 mins. prior to US and ex) Interventions - Exercise/Activities/Manual Therapy Exercises/Activities: 20 mins. PROM to AAROM in L sidelying for R hip abduction , isometric hip abduction,W/C push ups. Total minutes of Exercise: 20 Manual Therapy: NA Total minutes of Manual Therapy: 0 HOME EXERCISE PROGRAM: L sidelying hip abd/adduction ,IT band stretch,with assistance of caregiver to protect the low back. - Charges Timed Code Treatment Minutes: 30 Total Treatment Time: 50 Procedures billed for this date of service:: 50 Assessment: Patient met 1/2 STG's,hip extension elicits pain due to hip flexor tightness.He met 3/3 LTG's.He has copies of exercises,gives return demo of each today. Patient Education: Home Exercise Program, Education of Plan of Care Patient demonstrates compliance with HEP?: Yes Short Term Goals Goal #1: Tenderness at right hip decreased to minimal. Goal to be met by: 09/01/18 Progress towards Goal:: Met Goal #2: Patient able to perform right hip abduction & extension w/min. discomfort. Goal to be met by: 09/01/18 Progress towards Goal:: Partially Met (able to do this exercise without assist now,but pain increases with hip extension due to tight hip flexors) Halfway Goals Goal #1: Pt knows HEP and to continue ex's to maintain functional level at D/C. Goal to be met by: 09/27/18 Progress towards goal: Met Goal #2: Pt will perform all transfers to/from independently with good safety. Goal to be met by: 09/27/18 Progress towards goal: Met Goal #3: Pt to sleep without interruption from right hip pain. Goal to be met by: 09/27/18 Progress towards goal: Met Plan Dates of Clinical Documentation Consultant Goals: 09/27/18 Expiration date of current Insurance Approval:: na PLAN: D/C due to minimal progress,has copies of HEP.
== END 2018-10-03 23:59 ==
PROVIDERS: ATTEND Nurse Practitioner Family
DX: R26.89 Other abnormalities of gait and mobility (principal); Z91.81 History of falling; M25.551 Pain in right hip; Z99.3 Dependence on wheelchair

== ENCOUNTER 2018-09-15 11:38 | Outpatient (CLI) | END 2018-09-15 11:39 | disposition home or self-care (01) | LOC: RHC-LAB 11:38 | PROVIDERS: ATTEND Nurse Practitioner Family | DX: E11.9 Type 2 diabetes mellitus without complications (principal); I10 Essential (primary) hypertension | CPT/HCPCS: 36415; 80053; 83036; 85025 ==

== ENCOUNTER 2018-10-13 12:01 | Outpatient (CLI) | END 2018-10-13 12:02 | disposition home or self-care (01) | LOC: RHC-LAB 12:01 → FCC-LAB 12:02 | PROVIDERS: ATTEND Nurse Practitioner Family | DX: M10.9 Gout, unspecified (principal); E87.5 Hyperkalemia | CPT/HCPCS: 36415; 80048; 83735; 84550 ==